=== PATIENT | female | born 1985 | race Caucasian/White ===

== ENCOUNTER 2016-05-27 11:32 | Emergency (ER) | payer OTHER, MEDICAID ==
[~2016-05-27] VITALS: Ht 157.5 cm; Wt 82.0 kg
[~2016-05-27 11:32] MED LIST: CYCL-36 PO; GUAI100S6 PO; IBUP800T23 PO; Z.0.BCPILL PO; ZITH250T PO
[2016-05-27 11:37] VITALS: BP 117/85; PULSE 84; RESP 16; TEMP 98.4; O2SAT 96
[2016-05-27] MEDS ORDERED: AUGM875T PO (12:08)
--- NOTE | 2016-05-27 12:13 | PD ---
HPI Chief Complaint: Cold / Flu Symptoms Time Seen by Provider: 12:00 Travel History International Travel<30 days: No Contact w/Intl Traveler<30days: No Traveled to known affect area: No History of Present Illness HPI 31-year-old female presents to the emergency room for evaluation of cough and cold symptoms for the past week. Symptoms include sore throat, slightly productive cough, and congestion. Cough and congestion are green in color. Denies fever, chills, nausea, vomiting, and earache. Patient states symptoms do not seem to be going away. She has been taking [id number] Tylenol and NyQuil which moderately help but only temporarily. No chronic medical conditions or daily medications. PFSH Past Medical History Medical History: Denies Significant Hx Diminished Hearing: No Tetanus Vaccination: > 5 Years Influenza Vaccination: No ?: Not LMP: LAST WEEK : 2 Para: 2 Past Surgical History Surgical History: No Previous Surgery Social History Alcohol Use: No Tobacco Use: No Substance Use: No Allergies-Medications (Allergen,Severity, Reaction): Coded Allergies: Oxycodone (Verified Allergy, Severe, Anaphylaxis, 05/27/16) Adhesives (Verified Allergy, Mild, 05/27/16) Reported Meds & Prescriptions Reported Meds & Active Scripts Active No Active Prescriptions or Reported Medications Review of Systems Except as stated in HPI: all other systems reviewed are Neg Physical Exam Narrative GENERAL: Well-nourished, well-developed female in no acute distress. Afebrile. Ambulatory. SKIN: Warm and dry. HEAD: Normocephalic. Very mild maxillary sinus tenderness. EYES: No scleral icterus. No injection or drainage. ENT: Mucosa pink and moist. No erythema or exudates. No uvular edema. No uvular , palatal, or tonsillar deviation. Airway patent. Nasal turbinates appear normal without nasal blood, purulent drainage or septal hematoma. EARS: Bilateral pinnae and external canals appear within normal limits. Bilateral tympanic membranes without erythema, dullness or perforation. NECK: Supple, trachea midline. No JVD or lymphadenopathy. CARDIOVASCULAR: Regular rate and rhythm without murmurs, gallops, or rubs. RESPIRATORY: Breath sounds equal bilaterally. No accessory muscle use. No crackles, rales, wheezes, or rhonchi. Data Data Last Documented VS Vital Signs Date Time Temp Pulse Resp B/P Pulse Ox O2 Delivery O2 Flow Rate FiO2 05/27/16 11:42 18 96 Room Air 05/27/16 11:37 98.4 84 117/85 MDM Medical Decision Making Medical Screen Exam Complete: Yes Emergency Medical Condition: Yes Medical Record Reviewed: Yes Differential Diagnosis Sinusitis versus bronchitis versus upper respiratory infection versus pneumonia Narrative Course 31-year-old female presents to the emergency room for evaluation of cough and cold symptoms for the past week. Patient is afebrile and well-appearing in the emergency room. Physical exam is reassuring. She reports purulent green discharge from her nares and lungs. Given duration of symptoms, patient will be treated empirically for bacterial sinusitis. She was told to start medication in 3 days if symptoms have not improved. Told to follow up with her primary care physician and return for worsening symptoms. She understands and agrees to plan. Diagnosis Primary Impression: Sinusitis, acute maxillary Qualified Code: J01.00 - Acute non-recurrent maxillary sinusitis Referrals: Primary Care Physician Patient Instructions: General Instructions, Sinusitis (ED) Additional Instructions: Rest and drink plenty of fluids. Augmentin as directed, until gone. [id number] cough and cold medications as directed. Follow-up with a primary care physician. Return to the emergency room for worsening symptoms. Med/Other Pt SpecificInfo: Prescription(s) given Scripts No Active Prescriptions or Reported Meds Disposition: 01 DISCHARGE HOME Condition: Stable Delma Russell May 27, 2016 12:13
== END 2016-05-27 12:27 | disposition home or self-care (01) ==
LOC: PHEFT 11:32
DX: J01.00 Acute maxillary sinusitis, unspecified (principal)
CPT/HCPCS: 99283